=== PATIENT | male | born 1995 | race Caucasian/White ===

== ENCOUNTER 2020-04-20 12:00 | Emergency (ER) | payer SELFPAY ==
[~2020-04-20] VITALS: Ht 167.6 cm; Wt 72.6 kg
[2020-04-20 12:00] VITALS: BP 119/74
--- NOTE | 2020-04-20 12:00 | NUR ---
PATIENT BIBA TO BED 6 AT THIS TIME.
--- NOTE | 2020-04-20 12:01 | NUR ---
DR. GALLEGOS AT BEDSIDE EVALUATING PATIENT.
[2020-04-20] MEDS ORDERED: KETOROLAC 60 MG/2 ML VIAL IM ONE (12:05)
--- NOTE | 2020-04-20 12:11 | NUR ---
PT BIBA C/O LT ANKLE PAIN AND LT GREAT TOE PAIN S/P FALL LAST NIGHT. SLIGHT ERYTHEMA AND EDEMA ON LEFT TOE, AND NO EDEMA, ERYTHEMA, DEFORMITY, OR REDUCED ROM ON LEFT ANKLE NOTICED. DENIES N/V/D; SKIN IS PINK/WARM/DRY; AAOX4; PT DENIES ANY FEVER, CP, SOB, OR COUGH AT THIS TIME; PATIENT STATES PAIN OF 9/10 AT THIS TIME; VSS; PATIENT POSITIONED FOR COMFORT; HOB ELEVATED; BEDRAILS UP X2; BED DOWN. ER MD MADE AWARE OF PT STATUS.
--- NOTE | 2020-04-20 12:18 | NUR ---
XRAY IS AT BEDSIDE.
[2020-04-20 13:38] VITALS: BP 119/74
--- NOTE | 2020-04-20 13:38 | NUR ---
Patient discharged with v/s stable. Written and verbal after care instructions given and explained. Patient alert, oriented and verbalized understanding of instructions. Ambulatory with steady gait. All questions addressed prior to discharge. ID band removed. Patient advised to follow up with PMD. Rx of Naprosyn 500mg given. Patient educated on indication of medication including possible reaction and side effects. Opportunity to ask questions provided and answered.
== END 2020-04-20 13:38 | disposition home or self-care (01) ==
LOC: MED 12:00
DX: S93.492A Sprain of other ligament of left ankle, initial encounter (principal); F17.210 Nicotine dependence, cigarettes, uncomplicated; Z71.6 Tobacco abuse counseling; W17.89XA Other fall from one level to another, initial encounter; Y93.89 Activity, other specified; Y92.89 Other specified places as the place of occurrence of the external cause; Y99.8 Other external cause status
CPT/HCPCS: 29515; 73610; 73660; 96372; 99284; J1885